=== PATIENT | male | born 2000 | race African-American/Black ===

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

== ENCOUNTER 2022-10-27 13:53 | Emergency (ER) | payer SELFPAY ==
[2022-10-27] MEDS ORDERED: Ketorolac 60 MG/2 ML SDV IM ONE (14:22)
== END 2022-10-27 15:40 | disposition home or self-care (01) ==
LOC: JD.ED 13:53
DX: S51.852A Open bite of left forearm, initial encounter (principal); W54.0XXA Bitten by dog, initial encounter
CPT/HCPCS: 73090; 96372; 99283; J1885

== ENCOUNTER 2023-06-12 05:21 | Emergency (ER) | payer BC ==
[2023-06-12] MEDS ORDERED: Doxycycline Monohydrate 100 MG Cap PO ONE (05:40)
== END 2023-06-12 05:55 | disposition home or self-care (01) ==
LOC: JD.ED 05:21
DX: L03.011 Cellulitis of right finger (principal)
CPT/HCPCS: 99283; A9270

== ENCOUNTER 2023-12-01 15:16 | Emergency (ER) | payer BC ==
[2023-12-01 17:04] LABS: BASOPHILS ABSOLUTE AUTO 0.1 K/mm3 (0.0-0.2); BASOPHILS PERCENT AUTO 1.3 % (0.0-1.0); EOSINOPHILS ABSOLUTE AUTO 0.3 K/mm3 (0.0-0.4); EOSINOPHILS PERCENT AUTO 3.7 % (0.0-6.0); IMMATURE GRAN ABSOLUTE AUTO 0.02 K/mm3 (0.00-0.05); IMMATURE GRAN PERCENT AUTO 0.3 % (0.0-0.4); LYMPHOCYTES ABSOLUTE AUTO 2.8 K/mm3 (1.0-4.8); LYMPHOCYTES PERCENT AUTO 35.7 % (24.0-44.0); MEAN CORPUSCULAR HEMOGLOBIN 32.2 pg (28.0-32.0); MEAN CORPUSCULAR HGB CONC 34.9 g/dl (32.0-36.0); MEAN CORPUSCULAR VOLUME 92.3 fl (83.0-99.0); MEAN PLATELET VOLUME 12.4 fl (9.4-12.4); MONOCYTES ABSOLUTE AUTO 0.7 K/mm3 (0.0-0.8); MONOCYTES PERCENT AUTO 9.1 % (0.0-8.0); NEUTROPHILS ABSOLUTE AUTO 3.9 K/mm3 (1.8-7.7); NEUTROPHILS PERCENT AUTO 49.9 % (41.0-71.0); PLATELET COUNT,PLT 182 K/mm3 (150-400); RED BLOOD CELL COUNT 4.66 M/mm3 (4.52-5.90); WHITE BLOOD CELL COUNT,WBC 7.82 K/mm3 (3.9-11.3)
[2023-12-01 17:21] LABS: INR 1.05; PROTHROMBIN TIME 11.1 SECONDS (9.7-12.0)
[2023-12-01 17:23] LABS: PTT,PARTIAL THROMBOPLSTIN TIME 33.5 SECONDS (21.7-31.4)
[2023-12-01 17:25] LABS: D-DIMER QUANTITATIVE < 0.19 mg/L (0.19-0.50)
[2023-12-01 17:34] LABS: A/G RATIO 1.1 (1-2); ALBUMIN 3.9 g/dl (3.4-5.0); ANION GAP 10.8 (5-15); BILIRUBIN TOTAL 0.3 mg/dL (0.2-1.0); BUN/CREATININE RATIO 9.1 (14-18); CREATININE 1.1 mg/dL (0.7-1.3); EST CRCL DRUG DOSING (CG) 93.44 mL/min; MAGNESIUM 1.8 mg/dL (1.8-2.4); POTASSIUM,K 3.8 mEq/L (3.5-5.1); PROTEIN TOTAL,TP 7.6 g/dl (6.4-8.2)
[2023-12-01] MEDS: Ketorolac 60 MG/2 ML SDV IM ONE (18:31)
== END 2023-12-01 20:24 | disposition home or self-care (01) ==
LOC: JD.ED 15:16
DX: R07.89 Other chest pain (principal); M94.0 Chondrocostal junction syndrome [Tietze]
CPT/HCPCS: 36415; 71045; 80053; 83735; 83880; 84484; 85025; 85379; 85610; 85730; 93005; 96372; 99285; J1885

== ENCOUNTER 2024-05-26 23:01 | Emergency (ER) | payer BC ==
[2024-05-27] MEDS: Azithromycin 250 MG Tab PO ONE (00:03)
[2024-05-27] MEDS: cefTRIAXone 1 GM, Lidocaine 1% 2.1 ML IM ONE (00:03)
[2024-05-27 00:55] LABS: APPEARANCE,URINE CLEAR (Clear); BILIRUBIN,URINE NEGATIVE (Negative); COLOR,URINE LIGHT YELLOW (Yellow); GLUCOSE,URINE NEGATIVE (Negative); KETONES,URINE NEGATIVE (Negative); LEUKOCYTE ESTERASE,URINE NEGATIVE (Negative); NITRITE,URINE NEGATIVE (Negative); OCCULT BLOOD,URINE NEGATIVE (Negative); PROTEIN,URINE NEGATIVE (Negative); UROBILINOGEN,URINE 0.2 (0.2-1.0)
[2024-05-27 01:00] LABS: HEPATITIS C AB NON-REACTIVE (Non-React); HIV RAPID SCREEN RLFX COMFIRM NON-REACTIVE (Non-React)
[2024-05-27 01:12] LABS: EPITHELIAL CELLS,URINE NOT SEEN /hpf (0-5); RBC,URINE NOT SEEN /hpf (0-5); WBC,URINE 0-5 /hpf (0-5)
[2024-05-27 01:13] LABS: BACTERIA,URINE NOT SEEN /hpf (FEW); MUCUS,URINE NOT SEEN /hpf (FEW)
[2024-05-27 02:11] LABS: RAPID PLASMA REAGIN,RPR NON-REACTIVE (NONREACTIVE)
[2024-05-27 02:24] LABS: C. TRACHOMATIS BY PCR NOT DETECTED; N. GONORRHOEAE BY PCR NOT DETECTED
[2024-05-29 21:41] LABS: HSV1-GLYCO-G AB,IGGBYCIA 34.2 IV (<=0.89); HSV2-GLYCO-G AB,IGGBYCIA 0.07 IV (<=0.89)
== END 2024-05-27 00:48 | disposition home or self-care (01) ==
LOC: JD.ED 23:01
DX: Z20.2 Contact with and (suspected) exposure to infections with a predominantly sexual mode of transmission (principal)
CPT/HCPCS: 36415; 81001; 86592; 86695; 86696; 86803; 87449; 87491; 87591; 96372; 99283; A9270; J0696; G0433; J3490